=== PATIENT | female | born 1995 | race Caucasian/White ===

== ENCOUNTER 2020-08-23 07:03 | Day surgery (SDC) | payer OTHER ==
[~2020-08-23] VITALS: Ht 185.4 cm; Wt 90.7 kg
[2020-08-23 07:42] LABS: HCG,QUAL RESULT NEGATIVE (NEGATIVE)
[2020-08-23] MEDS ORDERED: CEFAZOLIN SOD 2 GM in D5W 50 ML IV ONE (08:00)
[2020-08-23] MEDS ORDERED: MEPERIDINE HCL/PF 25 MG/ML DISP.SYRIN IVP PRN (10:00)
[2020-08-23] MEDS ORDERED: LR 1,000 ML IV SCH (10:00)
[2020-08-23] MEDS ORDERED: ONDANSETRON HCL 4 MG/2 ML VIAL IVP PRN (10:00)
[2020-08-23] MEDS ORDERED: HYDROmorphone 1 MG INJ. 1 MG/ML AMPUL IVP PRN (10:00)
[2020-08-23] MEDS ORDERED: KETOROLAC TROMETHAMINE 30 MG VIAL IVP PRN (10:00)
[2020-08-23] MEDS ORDERED: OXYCODONE/ACETAMINOPHEN 5-325 TABLET PO ONE ×2 (11:15→13:15)
[2020-08-23] MEDS ORDERED: SEVOFLURANE 15 MIN GAS INH ONE (11:40)
[2020-08-23] MEDS ORDERED: LR 1,000 ML IV.SOLN IV ONE (11:40)
[2020-08-23] MEDS ORDERED: ONDANSETRON HCL 4 MG/2 ML VIAL ONE (11:40)
[2020-08-23] MEDS ORDERED: KETOROLAC TROMETHAMINE 30 MG VIAL ONE (11:40)
[2020-08-23] MEDS ORDERED: fentaNYL CITRATE/PF 100 MCG/2 ML AMP ONE (11:40)
[2020-08-23] MEDS ORDERED: SUCCINYLCHOLINE CHLORIDE 20 MG/ML(QUELICIN) ONE (11:40)
[2020-08-23] MEDS ORDERED: MIDAZOLAM HCL 5 MG/ML VIAL (VERSED) IV ONE (11:40)
[2020-08-23] MEDS ORDERED: PROPOFOL 200MG/ 20ML VIAL (DIPRIVAN) IV ONE (11:40)
[2020-08-23] MEDS ORDERED: NS IRRIG SOLN 1000 ML IR ONE (11:40)
[2020-08-23] MEDS ORDERED: MEPERIDINE HCL/PF 100 MG/ML AMP ONE (11:40)
[2020-08-23] MEDS ORDERED: BUPIVACAINE /PF 0.25% 30 ML VIAL INJ ONE (11:40)
[2020-08-23 12:50] VITALS: BP_SYST 117
[2020-08-23] MEDS ORDERED: OXYCODONE/ACETAMINOPHEN 5-325 TABLET ONE (13:13)
== END 2020-08-23 14:55 | disposition home or self-care (01) ==
LOC: SDS 07:03
PROVIDERS: ATTEND Orthopaedic Surgery
DX: S42.302A Unspecified fracture of shaft of humerus, left arm, initial encounter for closed fracture (principal)
CPT/HCPCS: 24515; 76000; 84703; C1713 ×3; J0330; J0690; J1885; J2175; J2250; J2405; J2704; J3010; J3490; J7060; J7120